=== PATIENT | female | born 1985 | race Two or more races ===

== ENCOUNTER 2019-06-22 13:16 | Emergency (ER) | payer SELFPAY ==
[~2019-06-22] VITALS: Ht 170.2 cm; Wt 63.0 kg
[2019-06-22 13:21] VITALS: BP 100/50
== END 2019-06-22 15:35 | disposition left against medical advice (07) ==
LOC: ER 13:16
DX: F98.9 Unspecified behavioral and emotional disorders with onset usually occurring in childhood and adolescence (principal); Z53.21 Procedure and treatment not carried out due to patient leaving prior to being seen by health care provider